=== PATIENT | female | born 1985 | race Caucasian/White ===

== ENCOUNTER 2016-11-17 17:16 | Emergency (ER) | payer OTHER ==
[2016-11-17] MEDS ORDERED: ACETAMINOPHEN 325 MG TABLET PO STA (18:33)
[2016-11-17] MEDS ORDERED: ACETAMINOPHEN 325 MG TABLET PO ONE (18:37)
== END 2016-11-17 18:42 | disposition home or self-care (01) ==
DX: J06.9 Acute upper respiratory infection, unspecified (principal); B97.89 Other viral agents as the cause of diseases classified elsewhere
CPT/HCPCS: 99283; A9270

== ENCOUNTER 2016-12-05 17:23 | Emergency (ER) | payer OTHER ==
[2016-12-05] MEDS ORDERED: ONDANSETRON 4 MG/2 ML VIAL IVP STA (17:38)
[2016-12-05] MEDS ORDERED: KETOROLAC 60 MG/2 ML VIAL IVP STA (17:38)
[2016-12-05] MEDS ORDERED: SODIUM CHLORIDE 0.9% 1,000 ML IV ONE (17:38)
[2016-12-05] MEDS ORDERED: LOPERAMIDE 2 MG CAPSULE PO STA (17:39)
[2016-12-05] MEDS ORDERED: ONDANSETRON 4 MG/2 ML VIAL ONE (17:49)
[2016-12-05] MEDS ORDERED: KETOROLAC 30 MG/ML VIAL ONE (17:49)
[2016-12-05] MEDS ORDERED: LOPERAMIDE 2 MG CAPSULE PO ONE (17:50)
== END 2016-12-05 19:42 | disposition home or self-care (01) ==
DX: K52.9 Noninfective gastroenteritis and colitis, unspecified (principal); R03.0 Elevated blood-pressure reading, without diagnosis of hypertension
CPT/HCPCS: 36415; 80053; 83690; 96374; 96375; 99283; 99284; A9270

== ENCOUNTER 2018-01-06 14:14 | Emergency (ER) | payer OTHER ==
[2018-01-06 15:39] LABS: BASOPHILS % (AUTO) 0.7 %; EOSINOPHILS # (AUTO) 0.1 10^3/uL (0.0-0.7); EOSINOPHILS % (AUTO) 1.1 %; LYMPHOCYTES # (AUTO) 1.5 10^3/uL (1.5-3.5); LYMPHOCYTES % (AUTO) 21.6 %; MEAN CORPUSCULAR HEMOGLOBIN 28.9 pg (27.0-31.0); MEAN CORPUSCULAR HGB CONC 34.7 g/dL (32.0-36.0); MEAN CORPUSCULAR VOLUME 83.3 fL (81.0-99.0); MEAN PLATELET VOLUME 7.8 fL (7.9-10.8); MONOCYTES # (AUTO) 0.3 10^3/uL (0.0-1.0); MONOCYTES % (AUTO) 4.2 %; NEUTROPHILS # (AUTO) 4.9 10^3/uL (1.5-6.6); NEUTROPHILS % (AUTO) 72.4 %; PLT - PLATELET COUNT 286 10^3/uL (130-450); RED BLOOD COUNT 4.83 10^6/uL (4.20-5.40); RED CELL DISTRIBUTION WIDTH 12.5 % (12.0-15.0); WHITE BLOOD COUNT 6.8 x10^3/uL (4.8-10.8)
[2018-01-06 15:40] LABS: BILIRUBIN,URINE NEGATIVE (NEGATIVE); GLUCOSE, URINE (UA) NEGATIVE (NEGATIVE); KETONES,URINE (UA) NEGATIVE (NEGATIVE); LEUKOCYTE ESTERASE, URINE NEGATIVE (NEGATIVE); NITRITE,URINE NEGATIVE (NEGATIVE); OCCULT BLOOD,URINE LARGE (NEGATIVE); PH,URINE 5.5 PH (5.0-7.5); PROTEIN,URINE NEGATIVE (NEGATIVE); UROBILINOGEN,URINE 0.2 (NORMAL) E.U./dL (NORMAL)
[2018-01-06] MEDS ORDERED: HYDROmorphone 1 MG/ML SYRINGE IM STA (15:41)
[2018-01-06] MEDS ORDERED: KETOROLAC 60 MG/2 ML VIAL IM STA (15:41)
[2018-01-06] MEDS ORDERED: ONDANSETRON ODT 4 MG TABLET TL STA (15:41)
[2018-01-06 15:43] LABS: CLARITY,URINE HAZY (CLEAR); HCG UR QUAL NEGATIVE
--- NOTE | 2018-01-06 15:43 | ED Physician Documentation ---
PD HPI ABD PAIN - Stated complaint Stated Complaint: ABD PX - Chief complaint Chief Complaint: Abd Pain - History obtained from History obtained from: Patient - History of Present Illness Timing - onset: Other (She has a history of ovarian cysts, she developed right pelvic pain last night which is worse today. Feels a little bit in the back but no vomiting or fevers. No urinary complaints or bleeding. She is on control and is currently exactly midcycle.) Review of Systems Ten Systems: 10 systems reviewed and negative Constitutional: denies: Fever, Chills Respiratory: denies: Dyspnea, Cough GI: reports: Abdominal Pain. 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 - Present Medications Home Medications: Ambulatory Orders Medication Instructions Recorded Confirmed Meloxicam [Mobic] 7.5 mg PO DAILY PRN 04/27/15 12/05/16 Ethinyl Estradiol/Drospirenone 1 tab PO DAILY 02/10/16 12/05/16 [Katie 3 mg-0.02 mg Tablet] Topiramate [Topamax] 15 mg PO DAILY 02/10/16 12/05/16 traMADol [Ultram] 50 mg PO Q4-6H PRN #15 tablet 01/06/18 - Allergies Allergies/Adverse Reactions: Allergies Allergy/AdvReac Type Severity Reaction Status Date / Time adhesive tape AdvReac Rash Verified 01/06/18 14:38 codeine AdvReac Nausea Verified 01/06/18 14:38 hydrocodone AdvReac Nausea Verified 01/06/18 14:38 - Social History Does the pt smoke?: No Smoking Status: Never smoker Does the pt drink ETOH?: No Does the pt have substance abuse?: No - Immunizations Immunizations are current?: Yes - POLST Patient has POLST: No PD ED PE NORMAL - Vitals Vital signs reviewed: Yes - General General: Alert and oriented X 3, No acute distress - Respiratory Respiratory: No respiratory distress, Clear bilaterally - Abdomen Abdomen: Normal bowel sounds, Soft, Other (Tender in the right pelvis below and inferior to McBurney's point.) - Extremities Extremities: No edema, No calf tenderness / cord - Neuro Neuro: Alert and oriented X 3, Normal speech - Psych Psych: Normal mood, Normal affect Results - Vitals Vitals: Vital Signs - 24 hr 01/06/18 01/06/18 01/06/18 14:36 16:18 16:34 Temperature 36.5 C Heart Rate 102 H 102 H 93 Respiratory 20 20 22 Rate Blood Pressure 157/110 H 142/90 H 141/107 H O2 Saturation 99 100 100 01/06/18 18:08 Temperature Heart Rate 88 Respiratory 20 Rate Blood Pressure 148/86 H O2 Saturation 100 Oxygen O2 Source Room air - Labs Labs: Laboratory Tests 01/06/18 01/06/18 01/06/18 15:35 15:35 15:35 WBC 6.8 RBC 4.83 Hgb 14.0 Hct 40.3 MCV 83.3 MCH 28.9 MCHC 34.7 RDW 12.5 Plt Count 286 MPV 7.8 L Neut # 4.9 Lymph # 1.5 [place] # 0.3 Eos # 0.1 Baso # 0.0 Absolute Nucleated RBC 0.00 Nucleated RBC % 0.0 Sodium 139 Potassium 4.0 Chloride 106 Carbon Dioxide 22 Anion Gap 11.0 BUN 11 Creatinine 0.8 Estimated GFR (MDRD) 82 L Glucose 108 H Calcium 9.2 Total Bilirubin 0.2 AST 19 ALT 15 Alkaline Phosphatase 55 Total Protein 7.7 Albumin 3.8 Globulin 3.9 Albumin/Globulin Ratio 1.0 Lipase 17 L Urine Color YELLOW Urine Clarity HAZY Urine pH 5.5 Ur Specific [place] 1.015 Urine Protein NEGATIVE Urine Glucose (UA) NEGATIVE Urine Ketones NEGATIVE Urine Occult Blood LARGE H Urine Nitrite NEGATIVE Urine Bilirubin NEGATIVE Urine Urobilinogen 0.2 (NORMAL) Ur Leukocyte Esterase NEGATIVE Urine RBC TNTC H Urine WBC 0-3 Ur Squamous Epith Cells FEW Squamous Urine Bacteria Rare Ur Microscopic Review INDICATED Urine Culture Comments NOT INDICATED Urine HCG, Qual NEGATIVE - Rads (name of study) PELVIC SONO Radiology: Prelim report reviewed (ja;yordan) PD MEDICAL DECISION MAKING - ED course ED course: 32-year-old woman with right pelvic pain that she thought was likely ovarian cyst however this is not present on ultrasound. The differential diagnosis includes appendicitis, however the after the administration of pain medicine she was nontender and she does not have anything approaching the leukocytosis. So this is less likely. She also has a history of renal colic and the pain did radiate to the back, and she is noted to have hematuria so this is probably the most likely diagnosis. Departure - Departure Disposition: 01 Home, Self Care Clinical Impression: Abdominal pain Condition: Good Record reviewed to determine appropriate education?: Yes Instructions: ED Abdominal Pain Unkn Cause Prescriptions: traMADol [Ultram] 50 mg PO Q4-6H PRN #15 tablet PRN Reason: Pain Comments: Return if not better in 12-24 hours or anytime if worse or if new symptoms develop, especially fever. Your blood pressure was elevated today on check into the emergency department. This does not mean that you have hypertension, it is a common phenomenon to come to the emergency department and have elevated blood pressure. I recommend that you see your primary care physician within the week to have it rechecked when you are feeling better.
[2018-01-06 15:55] LABS: ALBUMIN 3.8 g/dL (3.2-5.5); BILIRUBIN,TOTAL 0.2 mg/dL (0.2-1.0); CALCIUM 9.2 mg/dL (8.5-10.3); CREATININE 0.8 mg/dL (0.4-1.0); TOTAL PROTEIN 7.7 g/dL (6.7-8.2)
[2018-01-06 16:01] LABS: BACTERIA,URINE Rare /HPF (None Seen); RBC,URINE TNTC /HPF (0-5); SQUAMOUS EPITHELIAL CELL,UR FEW Squamous (<= Few)
--- NOTE | 2018-01-06 18:05 | Ultrasound Report ---
EXAM: PELVIC ULTRASOUND EXAM DATE: 01/06/2018 05:40 PM. CLINICAL HISTORY: Right pelvic pain. Possible LMP 12/24/2017. G4, P 0. COMPARISON: None. TECHNIQUE: Realtime transabdominal pelvic scan performed to identify the uterus and adnexa and as an overview of other pelvic structures, followed by transvaginal scan to provide greater detail of the u terus and adnexa, with static image documentation. FINDINGS: Uterus: 6.9 x 2.8 x 3.9 cm, volume 39 cc. Anteverted position. Normal overall size and echotexture. Masses: None. Endometrium: 2-3 mm. Normal. Cervix: Unremarkable. Right Ovary: 2.8 x 1.9 x 1.4 cm, volume 3.8 cc. Normal echotexture and blood flow. Left Ovary: 2.9 x 1.3 x 2.2 cm, volume 4.3 cc. Normal echotexture and blood flow. Free Fluid: None. Other: None. IMPRESSION: 1. Normal sonographic appearance of uterus and endometrium. 2. Normal ovaries. Normal ovarian volume. Normal flow documented within both ovaries. [facility] Referring Provider Line: [phone] SITE ID: [id number]
[2018-01-06 18:10] VITALS: BP 148/86
[2018-01-06] MEDS ORDERED: traMADol 50 MG TABLET PO STA (18:12)
== END 2018-01-06 18:41 | disposition home or self-care (01) ==
LOC: ED 14:14
DX: R10.2 Pelvic and perineal pain (principal); E78.00 Pure hypercholesterolemia, unspecified; R03.0 Elevated blood-pressure reading, without diagnosis of hypertension; Z87.442 Personal history of urinary calculi
CPT/HCPCS: 36415; 76830; 76856; 80053; 81001; 81025; 83690; 85025; 93975; 96372; 99283; A9270; J1170; Q0162; 81003; 87086

== ENCOUNTER 2018-11-27 08:00 | Outpatient (CLI) | payer BC, OTHER | END 2018-11-27 23:59 | LOC: LAB.WCP 08:00 | PROVIDERS: ATTEND Family Medicine | DX: M79.604 Pain in right leg (principal) | CPT/HCPCS: 36415; 85379 ==

== ENCOUNTER 2019-03-31 18:34 | Emergency (ER) | payer BC ==
[2019-03-31 18:45] VITALS: BP 177/99
[2019-03-31] MEDS ORDERED: IBUPROFEN 800 MG TABLET PO STA (18:45)
--- NOTE | 2019-03-31 18:46 | ED Physician Documentation ---
PD HPI CHEST PAIN - Stated complaint Stated Complaint: CHEST PX - Chief complaint Chief Complaint: Cardiac - History obtained from History obtained from: Patient - History of Present Illness Timing - onset: Today (All day today she had sharp right upper chest wall pain that is worse with neck rotation or reaching behind her back. Associated with mild shortness of breath and it started after coughing last night. She is on oral control pills but denies leg pain or swelling.) Review of Systems Ten Systems: 10 systems reviewed and negative Constitutional: denies: Fever, Chills Nose: denies: Rhinorrhea / runny nose, Congestion Throat: denies: Sore throat Cardiac: reports: Chest pain / pressure. 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 - Present Medications Home Medications: Ambulatory Orders Medication Instructions Recorded Confirmed Meloxicam [Mobic] 7.5 mg PO DAILY PRN 04/27/15 12/05/16 Ethinyl Estradiol/Drospirenone 1 tab PO DAILY 02/10/16 12/05/16 [Katie 3 mg-0.02 mg Tablet] Topiramate [Topamax] 15 mg PO DAILY 02/10/16 12/05/16 RX: traMADol [Ultram] 50 mg PO Q4-6H PRN #15 tablet 01/06/18 - Allergies Allergies/Adverse Reactions: Allergies Allergy/AdvReac Type Severity Reaction Status Date / Time adhesive tape AdvReac Rash Verified 01/06/18 14:38 codeine AdvReac Nausea Verified 01/06/18 14:38 hydrocodone AdvReac Nausea Verified 03/31/19 18:45 - Social History Does the pt smoke?: No Smoking Status: Never smoker Does the pt drink ETOH?: No Does the pt have substance abuse?: No - Immunizations Immunizations are current?: Yes - POLST Patient has POLST: No PD ED PE NORMAL - Vitals Vital signs reviewed: Yes - General General: Alert and oriented X 3, No acute distress - HEENT HEENT: PERRL, EOMI - Neck Neck: Supple, no meningeal sign, No bony TTP - Cardiac Cardiac: RRR, No murmur - Respiratory Respiratory: No respiratory distress, Clear bilaterally - Abdomen Abdomen: Non tender - Extremities Extremities: No edema, No calf tenderness / cord - Neuro Neuro: Alert and oriented X 3, Normal speech Results - Vitals Vitals: Vital Signs - 24 hr 03/31/19 18:41 Temperature 36.6 C Heart Rate 98 Respiratory 24 Rate Blood Pressure 177/99 H O2 Saturation 99 Oxygen O2 Source Room air - EKG (time done) 1847 Rate: Rate (enter#) (82) Rhythm: NSR [place]: Normal Intervals: Normal MA QRS: Normal Ischemia: Normal ST segments Computer interpretation: Agree with computer - Labs Labs: Laboratory Tests 03/31/19 03/31/19 03/31/19 19:15 19:15 19:15 WBC 7.0 RBC 4.72 Hgb 13.3 Hct 39.6 MCV 84.0 MCH 28.1 MCHC 33.5 RDW 13.0 Plt Count 292 MPV 7.9 Neut # (Auto) 4.2 Lymph # (Auto) 2.3 [place] # (Auto) 0.3 Eos # (Auto) 0.2 Baso # (Auto) 0.1 Absolute Nucleated RBC 0.00 Nucleated RBC % 0.1 D-Dimer Sodium 138 Potassium 3.6 Chloride 107 Carbon Dioxide 22 Anion Gap 9.0 BUN 12 Creatinine 0.7 Estimated GFR (MDRD) 95 Glucose 126 H Calcium 9.2 Total Bilirubin < 0.2 L AST 22 ALT 18 Alkaline Phosphatase 51 Troponin I < 0.04 Total Protein 6.9 Albumin 3.6 Globulin 3.3 Albumin/Globulin Ratio 1.1 Lipase 35 03/31/19 19:15 WBC RBC Hgb Hct MCV MCH MCHC RDW Plt Count MPV Neut # (Auto) Lymph # (Auto) [place] # (Auto) Eos # (Auto) Baso # (Auto) Absolute Nucleated RBC Nucleated RBC % D-Dimer < 200.0 L Sodium Potassium Chloride Carbon Dioxide Anion Gap BUN Creatinine Estimated GFR (MDRD) Glucose Calcium Total Bilirubin AST ALT Alkaline Phosphatase Troponin I Total Protein Albumin Globulin Albumin/Globulin Ratio Lipase - Rads (name of study) 2v chest Radiology: EMP read contemporaneously (normal) PD MEDICAL DECISION MAKING - ED course ED course: Likely consistent with musculoskeletal chest wall pain, heart score 0, PERC positive but dimer negative with low pretest probability. Departure - Departure Disposition: 01 Home, Self Care Clinical Impression: Chest wall pain Condition: Good Record reviewed to determine appropriate education?: Yes Instructions: ED Strain Chest Wall Comments: Take ibuprofen as needed for pain, return for new or worsening symptoms. Follow-up with your doctor, next available appointment. Discharge Date/Time: 03/31/19 19:46
[2019-03-31 19:23] LABS: BASOPHILS # (AUTO) 0.1 10^3/uL (0.0-0.1); EOSINOPHILS # (AUTO) 0.2 10^3/uL (0.0-0.7); EOSINOPHILS % (AUTO) 2.6 %; HGB - HEMOGLOBIN 13.3 g/dL (12.0-16.0); LYMPHOCYTES # (AUTO) 2.3 10^3/uL (1.5-3.5); LYMPHOCYTES % (AUTO) 32.2 %; MEAN CORPUSCULAR HEMOGLOBIN 28.1 pg (27.0-31.0); MEAN CORPUSCULAR HGB CONC 33.5 g/dL (32.0-36.0); MEAN PLATELET VOLUME 7.9 fL (7.9-10.8); MONOCYTES # (AUTO) 0.3 10^3/uL (0.0-1.0); MONOCYTES % (AUTO) 4.4 %; NEUTROPHILS # (AUTO) 4.2 10^3/uL (1.5-6.6); NEUTROPHILS % (AUTO) 59.8 %; PLT - PLATELET COUNT 292 10^3/uL (130-450); RED BLOOD COUNT 4.72 10^6/uL (4.20-5.40)
--- NOTE | 2019-03-31 19:24 | XRAY Report ---
Reason: chest pain Procedure Date: 03/31/2019 Accession Number: [id number] / [id number] Procedure: XR - Chest 2 View X-Ray CPT Code: 41670 FULL RESULT: EXAM: CHEST RADIOGRAPHY EXAM DATE: 03/31/2019 07:01 PM. CLINICAL HISTORY: Chest pain. COMPARISON: PORTABLE CHEST 10/08/2006 12:33 PM. TECHNIQUE: 2 views. FINDINGS: Lungs/Pleura: No focal opacities evident. No pleural effusion. No pneumothorax. Normal volumes. Mediastinum: Heart and mediastinal contours are unremarkable. Other: None. IMPRESSION: Normal 2-view chest radiography. [facility]
[2019-03-31 19:34] LABS: ALBUMIN 3.6 g/dL (3.2-5.5); ALBUMIN/GLOBULIN RATIO 1.1 (1.0-2.2); ALKALINE PHOSPHATASE 51 IU/L (42-121); ALT ALANINE AMINOTRANSFERASE 18 IU/L (10-60); AST ASPARTATE AMINOTRANSFERASE 22 IU/L (10-42); BILIRUBIN,TOTAL < 0.2 mg/dL (0.2-1.0); BUN - BLOOD UREA NITROGEN 12 mg/dL (6-20); CALCIUM 9.2 mg/dL (8.5-10.3); CARBON DIOXIDE - CO2 22 mmol/L (21-32); CHLORIDE 107 mmol/L (101-111); CREATININE 0.7 mg/dL (0.4-1.0); GFR - MDRD 95 (>89); GLUCOSE 126 mg/dL (70-100); LIPASE 35 U/L (22-51); SODIUM 138 mmol/L (135-145); TOTAL PROTEIN 6.9 g/dL (6.7-8.2)
== END 2019-03-31 19:46 | disposition home or self-care (01) ==
LOC: ED 18:34
DX: R07.89 Other chest pain (principal)
CPT/HCPCS: 36415; 71046; 80053; 83690; 84484; 85025; 85379; 93005; 99282; 99283; A9270

== ENCOUNTER 2019-06-25 03:41 | Emergency (ER) | payer BC ==
[2019-06-25] MEDS ORDERED: IPRATROPIUM/ALBUTEROL 3 ML NEB INH STA (04:18)
[2019-06-25] MEDS ORDERED: CHERRY SYRUP 10 ML UDC PO ONE (04:22)
[2019-06-25] MEDS ORDERED: DEXAMETHASONE 10 MG/ML VIAL PO STA (04:22)
--- NOTE | 2019-06-25 04:40 | ED Physician Documentation ---
History of Present Illness - Stated complaint Stated Complaint: SOA/PX - Chief complaint Chief Complaint: Resp - Additonal information Additional information: This is a 34-year-old female with a history of asthma, who presents with shortness of breath. Patient states that she was at work earlier today and she was exposed to a colleague's perfume which caused her to have an asthma attack. She took her inhaler several times and had to go home early because of the asthma, at home despite taking her inhaler she has had some persistent shortness of breath and feeling that her lungs are tight and achy. Her shortness of breath is still present, the feeling of achiness is mild in severity, she states this is not a chest pain but a feeling that her lungs are tight. No nausea or vomiting. No hemoptysis, leg swelling, history of DVT or PE. Patient recently started hormonal control 2 weeks ago. No recent surgeries or immobilizations. No history of cardiac disease. 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 HEENT: None Psych: Depression, Anxiety, ADD/ADHD Musculoskeletal: Chronic back pain Derm: Eczema Other Past Medical History: PCOS - Past Surgical History 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 - Present Medications Home Medications: Ambulatory Orders Medication Instructions Recorded Confirmed Meloxicam [Mobic] 7.5 mg PO DAILY PRN 04/27/15 12/05/16 Ethinyl Estradiol/Drospirenone 1 tab PO DAILY 02/10/16 12/05/16 [Katie 3 mg-0.02 mg Tablet] Topiramate [Topamax] 15 mg PO DAILY 02/10/16 12/05/16 traMADol [Ultram] 50 mg PO Q4-6H PRN #15 tablet 01/06/18 - Allergies Allergies/Adverse Reactions: Allergies Allergy/AdvReac Type Severity Reaction Status Date / Time adhesive tape AdvReac Rash Verified 06/25/19 03:55 codeine AdvReac Nausea Verified 06/25/19 03:55 hydrocodone AdvReac Nausea Verified 06/25/19 03:55 - Social History Does the pt smoke?: No Smoking Status: Never smoker Does the pt drink ETOH?: No Does the pt have substance abuse?: No Substance Use and Type: Marijuana - Immunizations Immunizations are current?: Yes - POLST Patient has POLST: No PD ED PE NORMAL - Vitals Vital signs reviewed: Yes - General General: Alert and oriented X 3, No acute distress - HEENT HEENT: Atraumatic - Cardiac Cardiac: RRR, No murmur - Respiratory Respiratory: Other (Very mild end expiratory wheeze more audible at the bilateral bases. Lungs are otherwise clear to auscultation. Patient is in no respiratory distress) - Abdomen Abdomen: Non tender, Non distended - Derm Derm: Warm and dry - Extremities Extremities: No deformity - Neuro Neuro: Alert and oriented X 3 - Psych Psych: Normal mood, Normal affect Results - Vitals Vitals: Vital Signs - 24 hr 06/25/19 06/25/19 06/25/19 03:45 04:01 04:53 Heart Rate 86 85 82 Respiratory 28 H 16 14 Rate Blood Pressure 167/100 H O2 Saturation 100 100 06/25/19 05:13 Heart Rate 88 Respiratory 22 Rate Blood Pressure O2 Saturation 100 Oxygen O2 Source Room air - EKG (time done) 3:46 Other comments: Other comments (Rate 77, rhythm sinus, axis normal. There is no ST segment elevation or depression, no abnormal T wave inversions. Intervals are within normal limits. QTc 418.) - Labs Labs: Laboratory Tests 06/25/19 06/25/19 06/25/19 04:58 04:58 04:58 WBC 9.0 RBC 4.61 Hgb 13.4 Hct 39.8 MCV 86.3 MCH 29.1 MCHC 33.7 RDW 12.8 Plt Count 291 MPV 10.2 Neut # (Auto) 5.3 Lymph # (Auto) 3.1 [place] # (Auto) 0.5 Eos # (Auto) 0.1 Baso # (Auto) 0.1 Absolute Nucleated RBC 0.00 Nucleated RBC % 0.0 Sodium 140 Potassium 3.2 L Chloride 105 Carbon Dioxide 20 L Anion Gap 15.0 H BUN 11 Creatinine 0.7 Estimated GFR (MDRD) 95 Glucose 114 H Calcium 9.2 Total Bilirubin 0.5 AST 18 ALT 17 Alkaline Phosphatase 47 Troponin I High Sens < 2.3 L Total Protein 7.7 Albumin 4.1 Globulin 3.6 Albumin/Globulin Ratio 1.1 Lipase 32 Serum HCG, Qual 06/25/19 04:58 WBC RBC Hgb Hct MCV MCH MCHC RDW Plt Count MPV Neut # (Auto) Lymph # (Auto) [place] # (Auto) Eos # (Auto) Baso # (Auto) Absolute Nucleated RBC Nucleated RBC % Sodium Potassium Chloride Carbon Dioxide Anion Gap BUN Creatinine Estimated GFR (MDRD) Glucose Calcium Total Bilirubin AST ALT Alkaline Phosphatase Troponin I High Sens Total Protein Albumin Globulin Albumin/Globulin Ratio Lipase Serum HCG, Qual NEGATIVE - Rads (name of study) CXR Radiology: Prelim report reviewed (Normal 2 view CXR) PD MEDICAL DECISION MAKING - ED course Complexity details: considered differential (Asthma exacerbation, pneumothorax, ACS, pulmonary embolism, musculoskeletal chest pain, pleural effusion, pneumonia) ED course: On initial exam vital signs are unremarkable other than some mild tachypnea, she does have some very slight end expiratory wheeze, normal oxygen saturation. A DuoNeb was given along with dexamethasone for asthma exacerbation. Chest x-ray shows no acute abnormality. EKG shows normal sinus rhythm without signs of ischemia, dysrhythmia, or right heart strain. After the DuoNeb treatment patient is feeling improved and her breath sounds are clear bilaterally with no wheeze, no increased work of breathing. Patient had been using her inhaler without a spacer, it was likely not as effective. She was given a spacer and instructions on how to use it. CBC is unremarkable. Pulmonary embolism was considered, however patient has no signs of DVT, no tachycardia, normal oxygen saturation, and given her wheezes that improved with treatment, and the fact that her symptoms have resolved pulmonary embolism is extremely unlikely. High-sensitivity troponin negative, and my suspicion for ACS is very low given her low risk factors and her symptoms and exam being consistent with asthma. Electrolytes notable for mild hypokalemia of 3.2, this is repleted with 20 mEq of potassium (pt has an empty stomach so larger doses were avoided) and I instructed patient to take in some potassium rich foods at home. I discussed that she appears to have a mild asthma exacerbation, avoid triggers such as exposure to perfumes or other environmental allergens, and she will follow-up with her primary care provider. If she has worsening symptoms, chest pain, shortness of breath, any signs of DVT or PE, she is to return to the emergency department immediately. Patient agrees with this plan and was discharged home in the care of her partner Departure - Departure Disposition: 01 Home, Self Care Clinical Impression: Asthma Qualifiers: Asthma severity: mild Asthma persistence: intermittent Asthma complication type: with acute exacerbation Qualified Code(s): J45.21 - Mild intermittent asthma with (acute) exacerbation Condition: Good Instructions: Asthma Dc, Hypokalemia Dc Follow-Up: Preet Owen DO [Primary Care Provider] - Within 1 week (For follow up on asthma/shortness of breath and mild hypokalemia) Comments: You were seen today for an asthma exacerbation, please use your inhaler with the spacer that is provided. You were also noted to have some low potassium on your labs, please eat foods high in potassium such as avocados and bananas over the next several days. Please follow-up with your primary care provider on your symptoms. If you are having worsening shortness of breath, leg swelling, blood in your sputum, fever, or chest pain, return to the emergency department. Forms: Activity restrictions
--- NOTE | 2019-06-25 04:55 | XRAY Report ---
Reason: SOB Procedure Date: 06/25/2019 Accession Number: [id number] / [id number] Procedure: XR - Chest 2 View X-Ray CPT Code: 77879 FULL RESULT: EXAM: CHEST RADIOGRAPHY EXAM DATE: 06/25/2019 04:40 AM. CLINICAL HISTORY: SOB. COMPARISON: CHEST 2 VIEW 03/31/2019 7:01 PM. TECHNIQUE: 2 views. FINDINGS: Lungs/Pleura: No focal opacities evident. No pleural effusion. No pneumothorax. Normal volumes. Mediastinum: Heart and mediastinal contours are unremarkable. Other: None. IMPRESSION: Normal 2-view chest radiography. [facility]
[2019-06-25 05:05] LABS: BASOPHILS # (AUTO) 0.1 10^3/uL (0.0-0.1); BASOPHILS % (AUTO) 0.7 %; EOSINOPHILS # (AUTO) 0.1 10^3/uL (0.0-0.7); EOSINOPHILS % (AUTO) 1.1 %; HGB - HEMOGLOBIN 13.4 g/dL (12.0-16.0); LYMPHOCYTES # (AUTO) 3.1 10^3/uL (1.5-3.5); LYMPHOCYTES % (AUTO) 33.8 %; MEAN CORPUSCULAR HEMOGLOBIN 29.1 pg (27.0-31.0); MEAN CORPUSCULAR HGB CONC 33.7 g/dL (32.0-36.0); MEAN CORPUSCULAR VOLUME 86.3 fL (81.0-99.0); MEAN PLATELET VOLUME 10.2 fL (7.9-10.8); MONOCYTES # (AUTO) 0.5 10^3/uL (0.0-1.0); MONOCYTES % (AUTO) 5.1 %; NEUTROPHILS # (AUTO) 5.3 10^3/uL (1.5-6.6); NEUTROPHILS % (AUTO) 58.9 %; PLT - PLATELET COUNT 291 10^3/uL (130-450); RED BLOOD COUNT 4.61 10^6/uL (4.20-5.40); RED CELL DISTRIBUTION WIDTH 12.8 % (12.0-15.0)
[2019-06-25 05:25] LABS: ALBUMIN 4.1 g/dL (3.2-5.5); ALBUMIN/GLOBULIN RATIO 1.1 (1.0-2.2); BILIRUBIN,TOTAL 0.5 mg/dL (0.2-1.0); CALCIUM 9.2 mg/dL (8.5-10.3); CREATININE 0.7 mg/dL (0.4-1.0); TOTAL PROTEIN 7.7 g/dL (6.7-8.2)
[2019-06-25 05:41] LABS: HCG,QUALITATIVE BLOOD NEGATIVE
[2019-06-25] MEDS ORDERED: POTASSIUM CHLORIDE 20 MEQ TABLET PO STA (05:47)
[2019-06-25 06:00] VITALS: BP 134/89
== END 2019-06-25 06:06 | disposition home or self-care (01) ==
LOC: ED 03:41
DX: J45.21 Mild intermittent asthma with (acute) exacerbation (principal); E87.6 Hypokalemia
CPT/HCPCS: 36415; 71046; 80053; 83690; 84484; 84703; 85025; 93005; 94640; 94664; 99284; A9270

== ENCOUNTER 2019-07-01 21:52 | Emergency (ER) | payer BC ==
[2019-07-01] MEDS ORDERED: IPRATROPIUM/ALBUTEROL 3 ML NEB INH STA ×2 (22:05→22:12)
[2019-07-01] MEDS ORDERED: methylPREDNISolone SUCCINATE 125 MG/2 ML VIAL IVP STA (22:12)
[2019-07-01] MEDS ORDERED: MAGNESIUM SULFATE 2 GRAM 2 GM/50 ML BAG IV ONE (22:12)
--- NOTE | 2019-07-01 22:43 | ED Physician Documentation ---
PD HPI DYSPNEA - Stated complaint Stated Complaint: ASTHMA/SOA - Chief complaint Chief Complaint: Resp - History obtained from History obtained from: Patient, Family - History of Present Illness Timing - onset: How many minutes ago (30) Timing - onset during: Rest Timing - duration: Minutes (30) Timing - details: Abrupt onset Severity Comments: severe shortness of breath and wheezing Inciting event(s): Exposure (ie smoke) (to cologne) Improved by: Inhaler/neb Worsened by: Exertion, Allergens Associated symptoms: Cough, Wheezing. No: Fever, Hemoptysis, Chest pain / discomfort, Diaphoresis, Bilateral edema, Unilateral edema Similar symptoms before: Diagnosis (asthma) Recently seen: Not recently seen - Treatment prior to arrival Treatment prior to arrival: albuterol inhaler Review of Systems Ten Systems: 10 systems reviewed and negative Constitutional: denies: Fever Nose: reports: Reviewed and negative Cardiac: denies: Chest pain / pressure Respiratory: reports: Dyspnea, Cough, Wheezing. 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: Breast reduction - Present Medications Home Medications: Ambulatory Orders Medication Instructions Recorded Confirmed Meloxicam [Mobic] 7.5 mg PO DAILY PRN 04/27/15 12/05/16 Ethinyl Estradiol/Drospirenone 1 tab PO DAILY 02/10/16 12/05/16 [Katie 3 mg-0.02 mg Tablet] Topiramate [Topamax] 15 mg PO DAILY 02/10/16 12/05/16 traMADol [Ultram] 50 mg PO Q4-6H PRN #15 tablet 01/06/18 predniSONE [Prednisone] 40 mg PO DAILY #10 tablet 07/01/19 - Allergies Allergies/Adverse Reactions: Allergies Allergy/AdvReac Type Severity Reaction Status Date / Time influenza virus vaccine ts Allergy Unknown Verified 06/27/19 08:10 [id number] (36 mos,up) [From Fluarix] adhesive tape AdvReac Rash Verified 06/25/19 03:55 codeine AdvReac Nausea Verified 06/25/19 03:55 hydrocodone AdvReac Nausea Verified 06/25/19 03:55 - Social History Does the pt smoke?: No Smoking Status: Never smoker Does the pt drink ETOH?: No Does the pt have substance abuse?: No - Immunizations Immunizations are current?: Yes - POLST Patient has POLST: No PD ED PE NORMAL - Vitals Vital signs reviewed: Yes (tachypneic, tachycardic, afebrile ) - General General: Alert and oriented X 3, Other (moderate acute respiratory distress, unable to speak in full sentences ) - HEENT HEENT: Atraumatic, Moist mucous membranes, Pharynx benign, Dentition benign - Neck Neck: Supple, no meningeal sign, No JVD - Cardiac Cardiac: No murmur, No gallop, No rub, Strong equal pulses - Abdomen Abdomen: Soft, Non tender, Non distended - Female Female : Deferred - Rectal Rectal: Deferred - Derm Derm: Normal color, Warm and dry, No rash - Neuro Neuro: Alert and oriented X 3 Eye Opening: Spontaneous Motor: Obeys Commands Verbal: Oriented GCS Score: 15 - Psych Psych: Normal mood, Normal affect PD ED PE EXPANDED - Respiratory Respiratory: Distress (moderate), Labored, Wheezing (moderate wheezing ), Decreased breath sounds (moderately decreased). No: Stridor, Rhonchi, Rales Results - Vitals Vitals: Vital Signs - 24 hr 07/01/19 07/01/19 07/01/19 21:59 22:08 22:21 Temperature 36.2 C L Heart Rate 111 H 103 H 107 H Respiratory 24 28 H 26 H Rate Blood Pressure O2 Saturation 100 07/01/19 07/01/19 07/01/19 22:29 23:06 23:31 Temperature Heart Rate 115 H 96 97 Respiratory 22 16 16 Rate Blood Pressure 158/85 H 138/71 H 138/78 H O2 Saturation 100 97 100 Oxygen O2 Source Room air PD MEDICAL DECISION MAKING - ED course Complexity details: re-evaluated patient, considered differential, d/w patient, d/w family ED course: ddx- uri, asthma, pe, copd, pneumonia 34 y/o F with acute wheezing and sob after exposure to cologne at work. Pt with severe exacerbation of asthma, sob, decreased breath sounds throughout and wheezing on exam. No URI trigger, no fever, abrupt onset not suggest of Pneumonia and pt has no risk factors for PE and has breath sounds c/w asthma. Given duoneb x 2 and then solumedrol and magnesium infusion. On reevaluation pt markedly improved, talking in full sentences and well appearing. Has her albuterol inhaler at home and will give short course of steroids. Pt is stable for discharge with outpt f/u and return precautions if worsening symptoms. Departure - Departure Disposition: 01 Home, Self Care Clinical Impression: Acute asthma exacerbation Qualifiers: Asthma severity: moderate Asthma persistence: persistent Qualified Code(s): J45.41 - Moderate persistent asthma with (acute) exacerbation Condition: Stable Record reviewed to determine appropriate education?: Yes Instructions: ED Reactive Airway Disease Follow-Up: Preet Owen DO [Primary Care Provider] - Prescriptions: predniSONE [Prednisone] 40 mg PO DAILY #10 tablet Forms: Activity restrictions
[2019-07-01 23:32] VITALS: BP 138/78
== END 2019-07-01 23:36 | disposition home or self-care (01) ==
LOC: ED 21:52
DX: J45.41 Moderate persistent asthma with (acute) exacerbation (principal)
CPT/HCPCS: 36415; 94640; 96365; 96375; 99284

== ENCOUNTER 2019-12-01 10:34 | Outpatient (CLI) | payer BC ==
--- NOTE | 2019-12-01 13:54 | Mammography Report ---
Reason: LUMP IN RT BREAST, LOWER INNER QUADRANT Procedure Date: 12/01/2019 Accession Number: [id number] / [id number] Procedure: MIKE - Diagnostic Dig Bilat CPT Code: Final Report FULL RESULT: EXAM: Diagnostic Dig Bilat DATE: 12/01/2019 11:29 AM CLINICAL HISTORY: Bilateral breast reduction surgery. Recent breast discomfort which has disappeared. TECHNIQUE: (B) - Bilateral CC and MLO views were obtained. COMPARISON: Baseline exam PARENCHYMAL PATTERN: (A) - The breasts demonstrate scattered fibroglandular densities bilaterally. FINDINGS: There are no suspicious masses, calcifications, skin thickening, or areas of distortion. IMPRESSION: Negative examination. BI-RADS category 1. RECOMMENDATION: (ANNUAL) - Recommend routine annual screening mammography. Beginning at age 40. BI-RADS CATEGORY: (1) - Negative. STANDARD QUALIFYING STATEMENTS: 1. This examination was not reviewed with the aid of Computer-Aided Detection (CAD). 2. A negative or benign imaging report should not preclude biopsy if clinically suspicious findings are present. 3. Dense breasts may obscure an underlying neoplasm. 4. This examination was reviewed with the aid of 3D breast imaging (tomosynthesis).
== END 2019-12-01 10:35 | disposition home or self-care (01) ==
LOC: DI 10:34
PROVIDERS: ATTEND Family Medicine
DX: N63.14 Unspecified lump in the right breast, lower inner quadrant (principal); N64.4 Mastodynia
CPT/HCPCS: 77066

== ENCOUNTER 2020-03-01 19:18 | Outpatient (CLI) | payer BC | END 2020-03-01 19:19 | disposition home or self-care (01) | LOC: COV 19:18 | PROVIDERS: ATTEND Family Medicine | DX: R05 Cough (principal); R06.02 Shortness of breath; R06.2 Wheezing | CPT/HCPCS: 81599 ==

== ENCOUNTER 2020-03-02 10:32 | Outpatient (CLI) | payer BC ==
--- NOTE | 2020-03-03 08:52 | XRAY Report ---
Reason: ACUTE ON CHRONIC RESPIRATORY FAILURE, ALLERGIC ASTHMA Procedure Date: 03/02/2020 Accession Number: [id number] / [id number] Procedure: WCP - Chest 2 View X-Ray CPT Code: 92779 Final Report FULL RESULT: EXAM: CHEST RADIOGRAPHY EXAM DATE: 03/02/2020 11:39 AM. CLINICAL HISTORY: ACUTE ON CHRONIC RESPIRATORY FAILURE, ALLERGIC ASTHMA. COMPARISON: CHEST 2 VIEW 06/25/2019 4:26 AM. TECHNIQUE: 2 views. FINDINGS: Lungs/Pleura: No focal opacities evident. No peribronchial cuffing or interstitial abnormality. No pleural effusion. No pneumothorax. Normal volumes. Mediastinum: Heart and mediastinal contours are unremarkable. Other: None. IMPRESSION: Normal 2-view chest radiography. [facility]
== END 2020-03-02 23:59 | disposition home or self-care (01) ==
LOC: DI.WCP 10:32
PROVIDERS: ATTEND Family Medicine
DX: J96.20 Acute and chronic respiratory failure, unspecified whether with hypoxia or hypercapnia (principal); J45.41 Moderate persistent asthma with (acute) exacerbation
CPT/HCPCS: 71046

== ENCOUNTER 2020-03-02 10:59 | Outpatient (CLI) | payer BC ==
[2020-03-02 12:18] LABS: BASOPHILS # (AUTO) 0.1 10^3/uL (0.0-0.1); EOSINOPHILS # (AUTO) 0.8 10^3/uL (0.0-0.7); EOSINOPHILS % (AUTO) 9.5 %; HGB - HEMOGLOBIN 12.9 g/dL (12.0-16.0); LYMPHOCYTES # (AUTO) 2.9 10^3/uL (1.5-3.5); LYMPHOCYTES % (AUTO) 37.1 %; MEAN CORPUSCULAR HEMOGLOBIN 27.9 pg (27.0-31.0); MEAN CORPUSCULAR HGB CONC 31.5 g/dL (32.0-36.0); MEAN CORPUSCULAR VOLUME 88.7 fL (81.0-99.0); MEAN PLATELET VOLUME 10.2 fL (7.9-10.8); MONOCYTES # (AUTO) 0.5 10^3/uL (0.0-1.0); MONOCYTES % (AUTO) 6.2 %; NEUTROPHILS # (AUTO) 3.6 10^3/uL (1.5-6.6); NEUTROPHILS % (AUTO) 45.7 %; PLT - PLATELET COUNT 313 10^3/uL (130-450); RED BLOOD COUNT 4.62 10^6/uL (4.20-5.40); RED CELL DISTRIBUTION WIDTH 13.4 % (12.0-15.0); WHITE BLOOD COUNT 7.9 x10^3/uL (4.8-10.8)
[2020-03-02 12:36] LABS: CALCIUM 8.7 mg/dL (8.5-10.3); CREATININE 0.7 mg/dL (0.4-1.0)
== END 2020-03-02 23:59 | disposition home or self-care (01) ==
LOC: LAB.WCP 10:59
PROVIDERS: ATTEND Family Medicine
DX: J96.20 Acute and chronic respiratory failure, unspecified whether with hypoxia or hypercapnia (principal); J45.41 Moderate persistent asthma with (acute) exacerbation
CPT/HCPCS: 36415; 80048; 85025

== ENCOUNTER 2020-03-02 22:05 | Emergency (ER) | payer BC ==
[2020-03-02] MEDS ORDERED: ALBUTEROL 1 PUFF INH STA (23:20)
--- NOTE | 2020-03-02 23:55 | ED Physician Documentation ---
History of Present Illness - Stated complaint Stated Complaint: SOA/COUGH/DIZZY - Chief complaint Chief Complaint: Resp - Additonal information Additional information: This is a 35-year-old female with a history of asthma who presents with with wheezing and cough. Patient has had a wheezing and cough for several weeks, initially she was diagnosed with URI and asthma exacerbation, she completed a course of prednisone, and she had improvement, but as soon as she stopped the prednisone taper her symptoms rebounded. Today she saw her PCP and had a CBC, BMP, and x-ray done, she was started on a Z-Avni, but she has continued to have wheezing. She is using albuterol at home with a spacer, and this gives her temporary relief. She has been using it every 4 hours. She continues to have wheezing and coughing. Her cough is nonproductive. She had a negative COVID test within the last several days. She denies any fever. No chest pain. No leg swelling. 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 : Kidney stones HEENT: None Psych: Depression, Anxiety, ADD/ADHD Musculoskeletal: Chronic back pain Derm: Eczema - Past Surgical History Past Surgical History: 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: Breast 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 - Present Medications Home Medications: Ambulatory Orders Medication Instructions Recorded Confirmed Meloxicam [Mobic] 7.5 mg PO DAILY PRN 04/27/15 12/05/16 Ethinyl Estradiol/Drospirenone 1 tab PO DAILY 02/10/16 12/05/16 [Katie 3 mg-0.02 mg Tablet] Topiramate [Topamax] 15 mg PO DAILY 02/10/16 12/05/16 traMADol [Ultram] 50 mg PO Q4-6H PRN #15 tablet 01/06/18 predniSONE [Prednisone] 40 mg PO DAILY #10 tablet 07/01/19 Benzonatate [Tessalon Perle] 200 mg PO TID PRN #30 capsule 03/03/20 predniSONE [Prednisone] 40 mg PO DAILY #10 tablet 03/03/20 - Allergies Allergies/Adverse Reactions: Allergies Allergy/AdvReac Type Severity Reaction Status Date / Time influenza virus vaccine ts Allergy Unknown Verified 03/02/20 22:17 [id number] (36 mos,up) [From Fluarix] adhesive tape AdvReac Rash Verified 03/02/20 22:17 codeine AdvReac Nausea Verified 03/02/20 22:17 hydrocodone AdvReac Nausea Verified 03/02/20 22:17 - Social History Does the pt smoke?: No Smoking Status: Never smoker Does the pt drink ETOH?: No Does the pt have substance abuse?: No - Immunizations Immunizations are current?: Yes - POLST Patient has POLST: No PD ED PE NORMAL - Vitals Vital signs reviewed: Yes - General General: Alert and oriented X 3, No acute distress - HEENT HEENT: PERRL - Neck Neck: Supple, no meningeal sign - Cardiac Cardiac: Other (Normal rate and rhythm on my examination) - Respiratory Respiratory: Other (Normal work of breathing, there are diffuse wheezes throughout the lung arnold) - Abdomen Abdomen: Normal bowel sounds, Soft, Non tender - Derm Derm: Warm and dry - Extremities Extremities: No deformity - Neuro Neuro: Alert and oriented X 3 - Psych Psych: Normal mood, Normal affect Results - Vitals Vitals: Vital Signs - 24 hr 03/02/20 03/02/20 03/03/20 22:10 23:34 00:00 Temperature 36.5 C Heart Rate 111 H 91 106 H Respiratory 17 24 Rate Blood Pressure 138/105 H 164/92 H O2 Saturation 96 98 03/03/20 01:08 Temperature Heart Rate 89 Respiratory 22 Rate Blood Pressure O2 Saturation Oxygen O2 Source Room air - Rads (name of study) CXR, my interpretation Radiology: Other (No acute cardiopulmonary abnormality or focal consolidation.) PD MEDICAL DECISION MAKING - ED course Complexity details: considered differential (Asthma, URI, pneumonia, pneumothorax, heart failure.) ED course: On arrival patient is mildly tachycardic, but this resolved spontaneously. She does have diffuse wheezing, reviewed labs from earlier in the day she has an unremarkable CBC, BMP, and a chest x-ray does not show signs of acute cardiopulmonary abnormalities. She has no chest pain, no signs of ACS. Her exam does not show signs of heart failure, she has no leg swelling, no history of cardiac pathology. No chest pain or signs of DVT, no history of PE. She recently tested negative for COVID 2 days ago. This appears to be an asthma exacerbation, which may be triggered by URI, allergies, or both. After an albuterol inhaler was given patient has some improvement in her symptoms, she continues to have some expiratory wheezes, and required a second round of inhalers, as well as a dose of steroids. On repeat examination she has excellent oxygen saturation, good air movement, she does continue to have some end-expiratory wheezing, but is feeling much better. She was given Tessalon Perles for her cough, and Fioric et for headache. On repeat examination she continues to feel well, her work of breathing is normal, after discussion with the patient she would like to go home. She will try using her nebulizer at home, we will treat her with a burst of steroids, and if she is having any worsening or not improving symptoms, she will return to the emergency department. Departure - Departure Disposition: Home, Self Care Clinical Impression: Asthma Qualifiers: Asthma severity: unspecified severity Asthma persistence: unspecified Asthma complication type: with acute exacerbation Qualified Code(s): J45.901 - Unspeci fied asthma with (acute) exacerbation Condition: Good Follow-Up: Preet Owen DO [Primary Care Provider] - Prescriptions: Benzonatate [Tessalon Perle] 200 mg PO TID PRN #30 capsule PRN Reason: Cough predniSONE [Prednisone] 40 mg PO DAILY #10 tablet Comments: You appear to have a flare of your asthma. Please take the entire course of steroids as prescribed. You may continue using your inhaler with a spacer, or your nebulizer as we discussed. In general these can be used every 4 hours, if you need to use them bit more frequently for the next day that is okay. If you are having worsening shortness of breath/Difficulty breathing, coughing up blood, or other concerning symptoms, return to the emergency department Discharge Date/Time: 03/03/20 02:37
[2020-03-03] MEDS ORDERED: predniSONE 20 MG TABLET PO STA ×2 (00:47→00:48)
[2020-03-03] MEDS ORDERED: ALBUTEROL 1 PUFF INH STA (00:47)
[2020-03-03 01:06] VITALS: BP 164/92
[2020-03-03] MEDS ORDERED: BENZONATATE 100 MG CAPSULE PO STA (01:45)
[2020-03-03] MEDS ORDERED: BUTALB/ACETAM/CAFF 50/325/40MG TABLET PO STA (01:45)
[2020-03-03] MEDS ORDERED: ACETAMINOPHEN 325 MG TABLET PO STA (01:46)
== END 2020-03-03 02:37 | disposition home or self-care (01) ==
LOC: ED 22:05
DX: J45.41 Moderate persistent asthma with (acute) exacerbation (principal); J96.20 Acute and chronic respiratory failure, unspecified whether with hypoxia or hypercapnia
CPT/HCPCS: 36415; 71046; 80048; 85025; 94640; 99283; 99284; A9270; J7512

== ENCOUNTER 2020-08-26 08:00 | Outpatient (CLI) | payer BC ==
[2020-08-26 11:21] LABS: BASOPHILS # (AUTO) 0.1 10^3/uL (0.0-0.1); BASOPHILS % (AUTO) 1.2 %; EOSINOPHILS # (AUTO) 0.3 10^3/uL (0.0-0.7); EOSINOPHILS % (AUTO) 3.6 %; HGB - HEMOGLOBIN 13.7 g/dL (12.0-16.0); LYMPHOCYTES # (AUTO) 2.7 10^3/uL (1.5-3.5); LYMPHOCYTES % (AUTO) 37.5 %; MEAN CORPUSCULAR HEMOGLOBIN 29.3 pg (27.0-31.0); MEAN CORPUSCULAR HGB CONC 33.2 g/dL (32.0-36.0); MEAN CORPUSCULAR VOLUME 88.2 fL (81.0-99.0); MEAN PLATELET VOLUME 10.6 fL (7.9-10.8); MONOCYTES # (AUTO) 0.4 10^3/uL (0.0-1.0); MONOCYTES % (AUTO) 5.5 %; NEUTROPHILS # (AUTO) 3.8 10^3/uL (1.5-6.6); NEUTROPHILS % (AUTO) 51.8 %; PLT - PLATELET COUNT 347 10^3/uL (130-450); RED BLOOD COUNT 4.68 10^6/uL (4.20-5.40); RED CELL DISTRIBUTION WIDTH 12.8 % (12.0-15.0); WHITE BLOOD COUNT 7.3 x10^3/uL (4.8-10.8)
[2020-08-26 11:54] LABS: ALBUMIN 3.8 g/dL (3.2-5.5); ALBUMIN/GLOBULIN RATIO 1.1 (1.0-2.2); ALKALINE PHOSPHATASE 52 IU/L (42-121); ALT ALANINE AMINOTRANSFERASE 17 IU/L (10-60); AST ASPARTATE AMINOTRANSFERASE 17 IU/L (10-42); BILIRUBIN,TOTAL 0.5 mg/dL (0.2-1.0); BUN - BLOOD UREA NITROGEN 14 mg/dL (6-20); CALCIUM 9.3 mg/dL (8.5-10.3); CARBON DIOXIDE - CO2 23 mmol/L (21-32); CHLORIDE 105 mmol/L (101-111); CHOL/HDL RATIO 4.2 (<4.4); CHOLESTEROL 288 mg/dL; CREATININE 0.8 mg/dL (0.4-1.0); GLUCOSE 112 mg/dL (70-100); HDL CHOLESTEROL 69 mg/dL; LDL CHOLESTEROL,CALCULATED 150 mg/dL; LDL/HDL RATIO 2.2 (<4.4); SODIUM 139 mmol/L (135-145); TOTAL PROTEIN 7.4 g/dL (6.7-8.2); VLDL CHOLESTEROL 69 mg/dL
[2020-08-26 11:59] LABS: HEMOGLOBIN A1c% 5.4 % (4.27-6.07)
[2020-08-26 12:19] LABS: HCG,QUALITATIVE BLOOD NEGATIVE
== END 2020-08-26 23:59 | disposition home or self-care (01) ==
LOC: LAB.WCP 08:00
PROVIDERS: ATTEND Family Medicine
DX: Z00.00 Encounter for general adult medical examination without abnormal findings (principal); E28.2 Polycystic ovarian syndrome
CPT/HCPCS: 36415; 80053; 80061; 83036; 83721; 84403; 84443; 84703; 85025

== ENCOUNTER 2021-09-24 05:44 | Emergency (ER) | payer BC ==
[2021-09-24] MEDS ORDERED: MORPHINE 10 MG/ML VIAL IVP STA (06:02)
[2021-09-24] MEDS ORDERED: ONDANSETRON 4 MG/2 ML VIAL IVP STA ×2 (06:02→09:15)
[2021-09-24] MEDS ORDERED: SODIUM CHLORIDE 0.9% 1,000 ML IV STA (06:02)
[2021-09-24 06:11] LABS: BASOPHILS # (AUTO) 0.1 10^3/uL (0.0-0.1); BASOPHILS % (AUTO) 0.4 %; EOSINOPHILS % (AUTO) 0.3 %; HCT - HEMATOCRIT 39.8 % (37.0-47.0); HGB - HEMOGLOBIN 13.5 g/dL (12.0-16.0); LYMPHOCYTES # (AUTO) 2.1 10^3/uL (1.5-3.5); LYMPHOCYTES % (AUTO) 17.6 %; MEAN CORPUSCULAR HEMOGLOBIN 28.6 pg (27.0-31.0); MEAN CORPUSCULAR HGB CONC 33.9 g/dL (32.0-36.0); MEAN CORPUSCULAR VOLUME 84.3 fL (81.0-99.0); MEAN PLATELET VOLUME 9.9 fL (7.9-10.8); MONOCYTES # (AUTO) 0.5 10^3/uL (0.0-1.0); NEUTROPHILS # (AUTO) 9.1 10^3/uL (1.5-6.6); NEUTROPHILS % (AUTO) 77.3 %; PLT - PLATELET COUNT 289 10^3/uL (130-450); RED BLOOD COUNT 4.72 10^6/uL (4.20-5.40); RED CELL DISTRIBUTION WIDTH 12.5 % (12.0-15.0); WHITE BLOOD COUNT 11.7 x10^3/uL (4.8-10.8)
[2021-09-24 06:24] LABS: ALBUMIN/GLOBULIN RATIO 1.1 (1.0-2.2); BILIRUBIN,TOTAL 0.5 mg/dL (0.2-1.0); CALCIUM 9.4 mg/dL (8.5-10.3); CREATININE 0.8 mg/dL (0.4-1.0); POTASSIUM 3.7 mmol/L (3.5-5.0); TOTAL PROTEIN 7.5 g/dL (6.7-8.2)
[2021-09-24] MEDS ORDERED: HYDROmorphone 1 MG/ML CARPUJECT IVP STA ×2 (06:30→07:30)
[2021-09-24] MEDS ORDERED: IOVERSOL 320 100 ML VIAL IVP ONE ×2 (07:06→07:40)
--- NOTE | 2021-09-24 07:07 | ED Physician Documentation ---
PD HPI ABD PAIN - Stated complaint Stated Complaint: ABD PX - Chief complaint Chief Complaint: Abd Pain - History obtained from History obtained from: Patient - History of Present Illness Timing - onset: Yesterday (onset about noon yesterday, with worsening the past few hours despite Meloxicam and Tylenol.) Timing - duration: Days (1) Timing - details: Abrupt onset, Still present, Waxing and waning Quality: Aching, Sharp, Pain Location: LUQ Radiation: Left flank Improved by: No: Eating, Position Worsened by: Moving. No: Eating, Breathing, Position, Palpation Associated symptoms: Nausea, Vomiting (few times with worse pain). No: Fever, Diarrhea, Hematochezia Similar symptoms before: Diagnosis (feels similar to kidney stone of several years ago) Recently seen: Not recently seen Review of Systems Constitutional: denies: Fever, Chills Nose: denies: Rhinorrhea / runny nose, Congestion Throat: denies: Sore throat Respiratory: denies: Cough GI: reports: Abdominal Pain, Nausea, Vomiting. 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: Other : Kidney stones HEENT: None Psych: Depression, Anxiety, ADD/ADHD Musculoskeletal: Chronic back pain Derm: Eczema Other Past Medical History: PCOS - Past Surgical History Past Surgical History: Yes /ROUSTABOUT: Breast reduction - Present Medications Home Medications: Ambulatory Orders Medication Instructions Recorded Confirmed Ethinyl Estradiol/Drospirenone 1 tab PO DAILY 02/10/16 09/24/21 [Katie 3 mg-0.02 mg Tablet] Benzonatate [Tessalon Perle] 200 mg PO TID PRN #30 capsule 03/03/20 Albuterol 2.5 mg INH Q4H PRN 09/24/21 09/24/21 Atomoxetine HCl [Strattera] 40 mg PO 09/24/21 Promethazine [Phenergan] 25 mg PO Q6H PRN #20 tab 09/24/21 traMADol [Ultram] 50 - 100 mg PO Q6H PRN #20 tablet 09/24/21 - Allergies Allergies/Adverse Reactions: Allergies Allergy/AdvReac Type Severity Reaction Status Date / Time influenza virus vaccine ts Allergy Unknown Verified 09/24/21 06:05 [id number] (36 mos,up) [From Fluarix] adhesive tape AdvReac Rash Verified 09/24/21 06:05 codeine AdvReac Nausea Verified 09/24/21 06:05 hydrocodone AdvReac Nausea Verified 09/24/21 06:05 - Social History Does the pt smoke?: No Smoking Status: Never smoker Does the pt drink ETOH?: No Does the pt have substance abuse?: No - Immunizations Immunizations are current?: Yes - POLST Patient has POLST: No PD ED PE NORMAL - Vitals Vital signs reviewed: Yes - General General: Alert and oriented X 3, Well developed/nourished, Other (appears in considerable pain, rolling in cart. ) - Cardiac Cardiac: RRR, No murmur - Respiratory Respiratory: Clear bilaterally - Abdomen Abdomen: Normal bowel sounds, Soft, Non distended, No organomegaly, Other (tender left mid abd without percussion nor rebound. Right not tender. ) - Rectal Rectal: Deferred - Back Back: Other (left CVA area tender to percussion, not to palpation. ) - Derm Derm: Normal color, Warm and dry, No rash - Extremities Extremities: No tenderness to palpate, Normal ROM s pain - Neuro Neuro: Alert and oriented X 3, No motor deficit, Normal speech Results - Vitals Vitals: Vital Signs - 24 hr 09/24/21 09/24/21 10:05 10:07 Temperature 36.6 C Heart Rate 94 102 H Respiratory 16 16 Rate Blood Pressure 182/116 H 186/105 H O2 Saturation 97 98 Oxygen O2 Source Room air - Labs Labs: Laboratory Tests 09/24/21 09/24/21 09/24/21 06:03 06:03 10:08 WBC 11.7 H RBC 4.72 Hgb 13.5 Hct 39.8 MCV 84.3 MCH 28.6 MCHC 33.9 RDW 12.5 Plt Count 289 MPV 9.9 Neut # (Auto) 9.1 H Lymph # (Auto) 2.1 Tillman # (Auto) 0.5 Eos # (Auto) 0.0 Baso # (Auto) 0.1 Absolute Nucleated RBC 0.00 Nucleated RBC % 0.0 Sodium 138 Potassium 3.7 Chloride 101 Carbon Dioxide 19 L Anion Gap 18.0 H BUN 11 Creatinine 0.8 Estimated GFR (MDRD) 80 L Glucose 162 H Calcium 9.4 Total Bilirubin 0.5 AST 22 ALT 17 Alkaline Phosphatase 55 Total Protein 7.5 Albumin 4.0 Globulin 3.5 Albumin/Globulin Ratio 1.1 Lipase 29 Urine Color LIGHT YELLOW Urine Clarity CLEAR Urine pH 6.5 Ur Specific [place] <=1.005 Urine Protein NEGATIVE Urine Glucose (UA) NEGATIVE Urine Ketones NEGATIVE Urine Occult Blood TRACE-INTA Urine Nitrite NEGATIVE Urine Bilirubin NEGATIVE Urine Urobilinogen 0.2 (NORMAL) Ur Leukocyte Esterase NEGATIVE Ur Microscopic Review NOT INDICATED Urine Culture Comments NOT INDICATED Urine HCG, Qual NEGATIVE - Rads (name of study) CT abd/pelvis Radiology: Prelim report reviewed (4-5 mm proximal urteral stone with mod hydronephrosis. ), See rad report PD MEDICAL DECISION MAKING - ED course Complexity details: reviewed results (proximal left ureteral stone with mod hydro. ), re-evaluated patient (She states intolerance of regular opiate pain medicines. She has been able to tolerate tramadol in the past when combined with nausea medicine. She does have a kidney stone passing that is 4 to 5 mm. Her pain is improved to mild here.), considered differential (likely ureteral stone, but consider diverticular or other process. ), d/w patient Departure - Departure Disposition: 01 Home, Self Care Clinical Impression: Left sided abdominal pain, Ureterolithiasis Condition: Stable Instructions: ED Stone Renal W Colic Follow-Up: Preet Owen DO [Primary Care Provider] - Prescriptions: Promethazine [Phenergan] 25 mg PO Q6H PRN #20 tab PRN Reason: Nausea / Vomiting traMADol [Ultram] 50 - 100 mg PO Q6H PRN #20 tablet PRN Reason: Pain Comments: Stay well-hydrated. There is no need to over hydrate per se. Continue your meloxicam 15 mg daily at home. Add Tylenol 500 mg 4 times a day regularly for the next several days as well. To that add tramadol 1 to 2 tablets every 6 hours if needed for pain. This is a moderate pain medicine but we can use it since you have intolerance to the other opiates. Add to it Phenergan or Zofran if needed for nausea to decrease the nausea side effects. Add tamsulosin daily for the next 3 to 5 days to decrease ureter spasms. You have a 4 to 5 mm stone in the upper part of the left ureter. This is of a passable size and the majority of the size will pass over the next few days. Follow-up with your primary if not improved in that timeframe return to the ER if severe symptoms despite the above medications. Transmitted the prescriptions to [facility] in [place]. Discharge Date/Time: 09/24/21 10:14
[2021-09-24] MEDS ORDERED: KETOROLAC 30 MG/ML VIAL IVP STA (07:30)
[2021-09-24] MEDS ORDERED: diphenhydrAMINE INJ 50 MG/ML VIAL IVP STA (07:30)
[2021-09-24] MEDS ORDERED: LIDOCAINE-MPF 2% 6 ML in SODIUM CHLORIDE 0.9% 50 ML IV STA (07:32)
--- NOTE | 2021-09-24 08:45 | CT Report ---
PROCEDURE: CT abdomen and pelvis with contrast INDICATIONS: kid stones hx. severe abd pain CONTRAST: IV CONTRAST: Optiray 320 ml: 100 PO CONTRAST: *NO PO CONTRAST TECHNIQUE: After the administration of intravenous contrast, 5 mm thick sections acquired from the diaphragms to the symphysis. 5 mm thick coronal and sagittal reformats were acquired. For radiation dose reducti on, the following was used: automated exposure control, adjustment of mA and/or kV according to rick ent size. COMPARISON: None. FINDINGS: Image quality: Excellent. ABDOMEN: Lung bases: Lung bases are clear. Heart size is normal. Solid organs: Liver and spleen are normal in size and enhancement. Gallbladder unremarkable. Bilia ry system is non dilated. Pancreas enhances normally. No adrenal nodules. There is left-sided [id number] hydronephrosis and hydroureter resulting from a 5 mm proximal le ft ureteral calculus. Urinary bladder unremarkable. Peritoneum and bowel: Bowel loops demonstrate normal wall thickness and caliber. No free fluid or a ir. Normal appendix identified Nodes and vessels: No retroperitoneal or mesenteric adenopathy by size criteria. Aorta and inferior vena cava are normal in size. Miscellaneous: No ventral hernias. PELVIS: Genitourinary: Bladder wall thickness is normal. Miscellaneous: No inguinal hernias or adenopathy. Bones: No suspicious bony lesions. No vertebral body compression fractures. IMPRESSION: 1. Proximal 5 mm left ureteral calculus results in moderate left hydronephrosis and perinephric stran ding. Note: Final report is concordant with preliminary report provided by [facility] Reviewed by: Carrington Tubbs MD on 09/24/2021 7:44 AM [facility] Approved by: Carrington Tubbs MD on 09/24/2021 7:44 AM [place] Station ID: [id number]
[2021-09-24 10:12] VITALS: BP 186/105
[2021-09-24 10:26] LABS: BILIRUBIN,URINE NEGATIVE (NEGATIVE); GLUCOSE, URINE (UA) NEGATIVE (NEGATIVE); KETONES,URINE (UA) NEGATIVE (NEGATIVE); LEUKOCYTE ESTERASE, URINE NEGATIVE (NEGATIVE); NITRITE,URINE NEGATIVE (NEGATIVE); OCCULT BLOOD,URINE TRACE-INTA (NEGATIVE); PH,URINE 6.5 PH (5.0-7.5); PROTEIN,URINE NEGATIVE (NEGATIVE); UROBILINOGEN,URINE 0.2 (NORMAL) E.U./dL (NORMAL)
[2021-09-24 10:29] LABS: CLARITY,URINE CLEAR (CLEAR); HCG UR QUAL NEGATIVE
== END 2021-09-24 10:14 | disposition home or self-care (01) ==
LOC: ED 05:44
DX: N20.1 Calculus of ureter (principal); Z87.442 Personal history of urinary calculi
CPT/HCPCS: 36415; 74177; 80053; 81003; 81025; 83690; 85025; 96374; 96375; 96376; 99284; 99285; J1170; J1200; J7040; Q9967; 81001; 87086

== ENCOUNTER 2021-11-24 08:00 | Outpatient (CLI) | payer BC ==
[2021-11-24 17:53] LABS: BASOPHILS # (AUTO) 0.1 10^3/uL (0.0-0.1); BASOPHILS % (AUTO) 0.7 %; EOSINOPHILS # (AUTO) 0.3 10^3/uL (0.0-0.7); EOSINOPHILS % (AUTO) 3.7 %; HCT - HEMATOCRIT 42.9 % (37.0-47.0); HGB - HEMOGLOBIN 13.9 g/dL (12.0-16.0); LYMPHOCYTES # (AUTO) 3.7 10^3/uL (1.5-3.5); LYMPHOCYTES % (AUTO) 44.2 %; MEAN CORPUSCULAR HEMOGLOBIN 28.1 pg (27.0-31.0); MEAN CORPUSCULAR HGB CONC 32.4 g/dL (32.0-36.0); MEAN CORPUSCULAR VOLUME 86.8 fL (81.0-99.0); MEAN PLATELET VOLUME 10.8 fL (7.9-10.8); MONOCYTES # (AUTO) 0.5 10^3/uL (0.0-1.0); MONOCYTES % (AUTO) 6.3 %; NEUTROPHILS # (AUTO) 3.7 10^3/uL (1.5-6.6); NEUTROPHILS % (AUTO) 44.6 %; PLT - PLATELET COUNT 381 10^3/uL (130-450); RED BLOOD COUNT 4.94 10^6/uL (4.20-5.40); RED CELL DISTRIBUTION WIDTH 13.2 % (12.0-15.0); WHITE BLOOD COUNT 8.3 x10^3/uL (4.8-10.8)
[2021-11-24 18:02] LABS: CREATININE,URINE 213.3 mg/dL; MICROALBUM/CREATININE RATIO,UR 23.9 ug/mg (<30.0); MICROALBUMIN,URINE 5.1 mg/dL (0-300.0)
[2021-11-24 18:10] LABS: ALBUMIN 3.7 g/dL (3.2-5.5); ALBUMIN/GLOBULIN RATIO 0.9 (1.0-2.2); ALKALINE PHOSPHATASE 43 IU/L (42-121); ALT ALANINE AMINOTRANSFERASE 19 IU/L (10-60); AST ASPARTATE AMINOTRANSFERASE 18 IU/L (10-42); BILIRUBIN,TOTAL 0.3 mg/dL (0.2-1.0); BUN - BLOOD UREA NITROGEN 13 mg/dL (6-20); CALCIUM 9.1 mg/dL (8.5-10.3); CARBON DIOXIDE - CO2 22 mmol/L (21-32); CHLORIDE 103 mmol/L (101-111); CHOL/HDL RATIO 4.3 (<4.4); CHOLESTEROL 275 mg/dL; CREATININE 0.8 mg/dL (0.4-1.0); GFR - MDRD 80 (>89); GLUCOSE 114 mg/dL (70-100); HDL CHOLESTEROL 64 mg/dL; LDL CHOLESTEROL,CALCULATED 166 mg/dL; LDL/HDL RATIO 2.6 (<4.4); POTASSIUM 3.7 mmol/L (3.5-5.0); SODIUM 135 mmol/L (135-145); TOTAL PROTEIN 7.6 g/dL (6.7-8.2); TRIGLYCERIDES 227 mg/dL; VLDL CHOLESTEROL 45 mg/dL
[2021-11-24 20:20] LABS: ESTIMATED AVERAGE GLUCOSE 117 mg/dL (70-100); HEMOGLOBIN A1c% 5.7 % (4.27-6.07)
== END 2021-11-24 23:59 | disposition home or self-care (01) ==
LOC: LAB.WCP 08:00
PROVIDERS: ATTEND Family Medicine
DX: N20.0 Calculus of kidney (principal); I10 Essential (primary) hypertension
CPT/HCPCS: 36415; 80053; 80061; 82043; 82570; 83036; 83721; 85025

== ENCOUNTER 2022-03-03 16:01 | Emergency (ER) | payer BC ==
--- NOTE | 2022-03-03 16:35 | ED Physician Documentation ---
PD HPI HEENT - Stated complaint Stated Complaint: DIZZY/CONFUSION - Chief complaint Chief Complaint: Neuro - History obtained from History obtained from: Patient - History of Present Illness Timing - onset: How many hours ago (2), Today Timing - duration: Hours (2) Timing - details: Abrupt onset, Still present (but is greatly improving and clos e to baseline normal.) Location: Other (She was talking on the phone for her work which she does from home. She noted an onset of feeling vertigo type dizziness associated with difficulty speaking in structured sentences and visually noted what appeared to be some blurred or loss of vision in the central field. Mild headache.) Worsens: Position (She does feel some spinning type "tilt to the wheel" type symptoms with head motion and change of position.) Associated symptoms: Congestion, Headache (The initial symptoms did not consist of headache as well. Her blurred vision, dizziness and trouble speaking were improving over approximately an hour and the headache was developing. Now headache with light sensitive.). No: Fever Similar symptoms before: Has not had sx before (She does have a history of intermittent migraines for which she takes Excedrin Migraine and rests in a dark room. No aura or neurologic symptoms associated with them before.) Recently seen: Not recently seen Review of Systems Constitutional: denies: Fever, Chills Nose: reports: Congestion. denies: Rhinorrhea / runny nose Throat: denies: Sore throat Cardiac: denies: Chest pain / pressure Respiratory: denies: Cough GI: reports: Nausea. denies: Abdominal Pain, Vomiting Skin: denies: Rash, Lesions Neurologic: reports: Headache (just today). 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: Breast reduction - Present Medications Home Medications: Ambulatory Orders Medication Instructions Recorded Confirmed Ethinyl Estradiol/Drospirenone 1 tab PO DAILY 02/10/16 09/24/21 [Katie 3 mg-0.02 mg Tablet] Benzonatate [Tessalon Perle] 200 mg PO TID PRN #30 capsule 03/03/20 Albuterol 2.5 mg INH Q4H PRN 09/24/21 09/24/21 Atomoxetine HCl [Strattera] 40 mg PO 09/24/21 Promethazine [Phenergan] 25 mg PO Q6H PRN #20 tab 09/24/21 traMADol [Ultram] 50 - 100 mg PO Q6H PRN #20 tablet 09/24/21 - Allergies Allergies/Adverse Reactions: Allergies Allergy/AdvReac Type Severity Reaction Status Date / Time influenza virus vaccine ts Allergy Unknown Verified 03/03/22 16:08 [id number] (36 mos,up) [From Fluarix] adhesive tape AdvReac Rash Verified 03/03/22 16:08 codeine AdvReac Nausea Verified 03/03/22 16:08 hydrocodone AdvReac Nausea Verified 03/03/22 16:08 - Social History Does the pt smoke?: No Smoking Status: Never smoker Does the pt drink ETOH?: No Does the pt have substance abuse?: No - Immunizations Immunizations are current?: Yes - POLST Patient has POLST: No PD ED PE NORMAL - Vitals Vital signs reviewed: Yes - General General: Alert and oriented X 3 (able to converse in full sentences with logical structure. ), No acute distress, Well developed/nourished - HEENT HEENT: PERRL, EOMI (some light sensitivity), Ears normal, Pharynx benign - Neck Neck: Supple, no meningeal sign, No adenopathy - Cardiac Cardiac: RRR, No murmur - Respiratory Respiratory: Clear bilaterally - Abdomen Abdomen: Soft, Non tender - Derm Derm: Normal color, Warm and dry - Extremities Extremities: No deformity, No tenderness to palpate, Normal ROM s pain - Neuro Neuro: Alert and oriented X 3, grinder lap 2-12 intact, No motor deficit, No sensory deficit, Normal speech Results - Vitals Vitals: Vital Signs - 24 hr 03/03/22 03/03/22 03/03/22 16:05 19:50 20:05 Temperature 36.6 C Heart Rate 110 H 70 83 Respiratory 20 14 18 Rate Blood Pressure 175/108 H 133/88 H O2 Saturation 95 98 100 Oxygen O2 Source Room air - Labs Labs: Laboratory Tests 03/03/22 03/03/22 03/03/22 17:18 17:18 17:18 WBC 8.2 RBC 4.56 Hgb 13.1 Hct 39.3 MCV 86.2 MCH 28.7 MCHC 33.3 RDW 13.2 Plt Count 327 MPV 9.6 Neut # (Auto) 5.0 Lymph # (Auto) 2.6 [place] # (Auto) 0.3 Eos # (Auto) 0.2 Baso # (Auto) 0.1 Absolute Nucleated RBC 0.00 Nucleated RBC % 0.0 ESR 28 H Sodium 137 Potassium 3.4 L Chloride 103 Carbon Dioxide 21 Anion Gap 13.0 BUN 11 Creatinine 0.7 Estimated GFR (MDRD) 93 Glucose 99 Calcium 8.6 Magnesium 1.9 Total Bilirubin < 0.2 L AST 16 ALT 13 Alkaline Phosphatase 53 Total Protein 7.2 Albumin 3.6 Globulin 3.6 Albumin/Globulin Ratio 1.0 Lipase 30 - Rads (name of study) head CT Radiology: Prelim report reviewed, See rad report PD MEDICAL DECISION MAKING - ED course Complexity details: reviewed results, re-evaluated patient (she is feeling better re: headache after IV toradol and compazine, c/w likely migraine. Awaiting CT at this point.), considered differential (Visual, language, dizziness symptoms subsequently followed by headache with light sensitivity suggest complex migraine. Symptoms are improving and almost gone. Can check CT head to ensure no vascular or structural abnormality. Most likely consideration is complex migraine with aura.), d/w patient Departure - Departure Clinical Impression: Aphasia, Visual changes, Headache Condition: Stable Record reviewed to determine appropriate education?: Yes Instructions: ED Headache Migraine NIHSS - Level of Consciousness Level of consciousness: (0) Alert, Keenly responsive LOC Questions: (0) Answers both Q's correct LOC Commands: (0) Performs both correctly - Gaze Best Gaze: (0) Normal - Visual Visual: (0) No loss - Facial Palsy Facial Palsy: (0) Normal, symmetrical movement - Motor Arms (both separate) Motor Arm (right): (0) No drift Motor Arm (left): (0) No drift - Motor Legs (both separate) Motor Leg (right): (0) No drift Motor Leg (left): (0) No drift - Limb Ataxia Limb Ataxia: (0) Absent - Sensory Sensory: (0) Normal - Best Language Best Language: (0) No aphasia - Dysarthria Dysarthria: (0) Normal - Extinction and Inattention (formally neg Extinction and inattention: (0) No abnormality - Total Score/Results Total Score/Result: 0
[2022-03-03 17:25] LABS: BASOPHILS # (AUTO) 0.1 10^3/uL (0.0-0.1); BASOPHILS % (AUTO) 0.6 %; EOSINOPHILS # (AUTO) 0.2 10^3/uL (0.0-0.7); EOSINOPHILS % (AUTO) 2.2 %; HCT - HEMATOCRIT 39.3 % (37.0-47.0); HGB - HEMOGLOBIN 13.1 g/dL (12.0-16.0); LYMPHOCYTES # (AUTO) 2.6 10^3/uL (1.5-3.5); LYMPHOCYTES % (AUTO) 31.3 %; MEAN CORPUSCULAR HEMOGLOBIN 28.7 pg (27.0-31.0); MEAN CORPUSCULAR HGB CONC 33.3 g/dL (32.0-36.0); MEAN CORPUSCULAR VOLUME 86.2 fL (81.0-99.0); MEAN PLATELET VOLUME 9.6 fL (7.9-10.8); MONOCYTES # (AUTO) 0.3 10^3/uL (0.0-1.0); MONOCYTES % (AUTO) 4.2 %; NEUTROPHILS % (AUTO) 61.3 %; PLT - PLATELET COUNT 327 10^3/uL (130-450); RED BLOOD COUNT 4.56 10^6/uL (4.20-5.40); RED CELL DISTRIBUTION WIDTH 13.2 % (12.0-15.0); WHITE BLOOD COUNT 8.2 x10^3/uL (4.8-10.8)
[2022-03-03] MEDS ORDERED: IOVERSOL 320 50 ML VIAL ONE (17:26)
[2022-03-03] MEDS: SODIUM CHLORIDE 0.9% 1,000 ML IV STA (17:30)
[2022-03-03] MEDS: PROCHLORPERAZINE 10 MG/2 ML VIAL IVP STA (17:31)
[2022-03-03] MEDS: KETOROLAC 30 MG/ML VIAL IVP STA (17:35)
[2022-03-03 17:37] LABS: ALBUMIN 3.6 g/dL (3.2-5.5); ALKALINE PHOSPHATASE 53 IU/L (42-121); ALT ALANINE AMINOTRANSFERASE 13 IU/L (10-60); AST ASPARTATE AMINOTRANSFERASE 16 IU/L (10-42); BILIRUBIN,TOTAL < 0.2 mg/dL (0.2-1.0); BUN - BLOOD UREA NITROGEN 11 mg/dL (6-20); CALCIUM 8.6 mg/dL (8.5-10.3); CARBON DIOXIDE - CO2 21 mmol/L (21-32); CHLORIDE 103 mmol/L (101-111); CREATININE 0.7 mg/dL (0.4-1.0); GFR - MDRD 93 (>89); GLUCOSE 99 mg/dL (70-100); LIPASE 30 U/L (22-51); MAGNESIUM 1.9 mg/dL (1.7-2.8); POTASSIUM 3.4 mmol/L (3.5-5.0); SODIUM 137 mmol/L (135-145); TOTAL PROTEIN 7.2 g/dL (6.7-8.2)
--- NOTE | 2022-03-03 20:07 | ED Physician Documentation ---
ED Addendum - Addendum Addendum: 03/03/22 21:28 Patient received a signout from outgoing physician, please see their do cumentation for further detail. Patient received a signout with CT CTA pending. It is negative for any intracranial abnormality. I evaluated the patient independently at bedside. She reports that her previous symptoms have completely abated. She denies any ongoing headache. She does report that she has a history of migraine headaches but has never had 1 with associated visual disturbance. She had a nonfocal nonlateralizing neurologic exam with no difficulties with ambulation and no indications of Cerebral infarction, posterior otherwise. I discussed all findings with her and her who was present at bedside. At this time they are agreeable for discharge and follow-up with primary care as needed. Otherwise clear return precautions and follow-up instructions were given prior to discharge. Clinical impression: Complex partial migraine
--- NOTE | 2022-03-03 21:03 | CT Report ---
PROCEDURE: ANGIO HEAD W/WO INDICATIONS: abrupt word search, dizzy, visual change today CONTRAST: IV CONTRAST: Optiray 320 ml: 80 PO CONTRAST: *NO PO CONTRAST TECHNIQUE: Precontrast 4.5 mm thick angled axial sections acquired from the foramen magnum to the vertex. Afte r the administration of intravenous contrast, 1 mm thick sections acquired through the [place] of [place] is. Postcontrast 4.5 mm thick sections then re-acquired from the foramen magnum to the vertex. 3-di mensional gajnawg-khonshccw-qzgepmlagl (MIP) and/or volume rendering reformats were acquired of the c entral intracranial vasculature. For radiation dose reduction, the following was used: automated ex posure control, adjustment of mA and/or kV according to patient size. COMPARISON: None. FINDINGS: Image quality: Good. Anterior circulation: Intracranial internal carotid arteries are normal in size and flow. The flow within the paired anterior cerebral arteries is normal and symmetric. The flow within the middle cer ebral arteries is normal and symmetric. The anterior communicating artery is seen. No aneurysms are seen. Posterior circulation: Visualized portions of the vertebral arteries demonstrate normal caliber, and join to form a normal appearing basilar artery. origin of the right and left chandelier maker. Flow within the posterior cerebral arteries is normal and symmetric. No aneurysms are seen. CSF spaces: Ventricles are normal in size and shape. Basal cisterns are patent. No extra-axial flu id collections. Brain: No midline shift. No intracranial bleeds or masses. Klein-white matter interface appears int act. Skull and face: Calvarium and facial bones appear intact, without suspicious lesions. Sinuses: Visualized sinuses and mastoids are clear. Trace nuchal thickening in the right maxillary sinus. IMPRESSION: 1. No acute intracranial hemorrhage. 2. No large vessel occlusion. 3. origin of the chandelier maker, variant anatomy. Results were communicated to Dr. Zenon Ponce at 03/03/2022 9:01 PM PDT. Reviewed by: Reji Krishna MD on 03/03/2022 9:02 PM PDT Approved by: Reji Krishna MD on 03/03/2022 9:02 PM PDT Station ID: [id number]
[2022-03-03] MEDS: IOVERSOL 320 50 ML VIAL IVP ONE (21:17)
[2022-03-03 21:53] VITALS: BP 142/80
== END 2022-03-03 21:53 | disposition home or self-care (01) ==
LOC: ED 16:01
DX: G43.109 Migraine with aura, not intractable, without status migrainosus (principal); H53.8 Other visual disturbances; R47.01 Aphasia
CPT/HCPCS: 36415; 80053; 83690; 83735; 85025; 85651; 96374; 96375; 99284

== ENCOUNTER 2023-01-01 09:56 | Outpatient (CLI) | payer BC ==
[2023-01-01] MEDS ORDERED: ALBUTEROL 1 PUFF INH STA (14:22)
== END 2023-01-01 09:57 | disposition home or self-care (01) ==
LOC: RT 09:56
PROVIDERS: ATTEND Internal Medicine
DX: J45.909 Unspecified asthma, uncomplicated (principal)
CPT/HCPCS: 94060